=== PATIENT | male | born 1940 | race Caucasian/White ===

== ENCOUNTER 2017-09-12 11:32 | Inpatient (IN) ==
[2017-09-12] MEDS ORDERED: SODIUM CHLORIDE 0.9% 1,000 ML IV STA (12:11)
[2017-09-12] MEDS ORDERED: VANCOMYCIN INJ 750 MG in SODIUM CHLORIDE 0.9% 250 ML IV STA (12:13)
[2017-09-12 13:23] LABS: Basophils # 0.1 10*3/uL (0.0-0.2); Basophils % 0.2 % (0.0-0.8); Hematocrit 39.5 VOL% (42.0-52.0); Hemoglobin 12.9 GM/DL (14.0-18.0); Immature Granulocytes % 2.1 %; Immature Granulocytes Absolute 0.51 #; Lymphocytes # 1.2 10*3/uL (1.4-4.0); Lymphocytes % 5.2 % (21.2-54.2); Mean Corpuscular HGB Conc 32.7 GM/DL (32-36); Mean Corpuscular Hemoglobin 30 PG (27-34); Mean Corpuscular Volume 92.3 FL (87-102); Monocytes # 1.7 10*3/uL (0.11-0.8); Monocytes % 7.3 % (1.7-12.7); Neutrophils # 20.3 10*3/uL (1.4-7.4); Neutrophils % 85.2 % (38.7-73.9); Platelet Count 400 T/CUMM (130-400); Red Blood Count 4.28 MC/CUMM (3.8-5.5); Red Cell Distribution Width 14.4 % (9.3-17.3); White Blood Count 23.8 T/CUMM (4-12)
[2017-09-12 13:31] LABS: INR 1.2; PT Patient Result 12.8 SECS; Partial Thromboplastin Time 26.4 SECS (0-40)
[2017-09-12 13:33] LABS: Albumin 2.6 G/DL (3.4-5.0); Bilirubin,Total 0.4 MG/DL (0.2-1.0); Calcium 8.5 MG/DL (8.5-10.1); Magnesium 2.7 MG/DL (1.8-2.4); Osmolality,Calculated 314.4 MOS/KG (273-304); Potassium 3.7 MMOL/L (3.5-5.1); Total Protein 6.6 G/DL (6.4-8.3)
[2017-09-12 13:34] LABS: Lactic Acid 1.3 MMOL/L (0.4-2.0)
[2017-09-12 13:36] LABS: Apearance,Urine CLOUDY (Clear); Bilirubin,Urine Negative (Negative); Blood, Urine Small mg/dL (Negative); Glucose,Urine (UA) Negative (Negative); Ketones,Urine Negative (Negative); Mucus,Urine Occasional /LPF (Occasional); Nitrite,Urine Positive (Negative); Protein,Urine 100 MG/DL; RBC,Urine 3 /HPF (0-4); Urine Color Yellow (Yellow); Urine Specific Gravity 1.019 (1.001-1.035); Urine Urobilinogen < 2.0 EU/DL (0.2-1.0); WBC,Urine 263 /HPF (0-6)
[2017-09-12 13:50] LABS: Lymphocytes 4 % (20-55); Platelet Estimate Adequate; Segmented Neutrophils 86 % (50-85); Total Cells Counted 100
[2017-09-12] MEDS ORDERED: ACETAMINOPHEN 325 MG TABLET PO PRN (14:38)
[2017-09-12] MEDS ORDERED: PROMETHAZINE 25 MG/1 ML VIAL IM PRN (14:38)
[2017-09-12] MEDS ORDERED: traZODone 50 MG TABLET PO PRN (14:38)
[2017-09-12] MEDS ORDERED: ONDANSETRON 4 MG/2 ML VIAL IV PRN (14:38)
[2017-09-12] MEDS ORDERED: GENTAMICIN INJ 80 MG in PREMIX 1 EACH IV ONE (14:44)
[2017-09-12] MEDS ORDERED: GENTAMICIN 80 MG/2 ML VIAL ONE (15:09)
[2017-09-12] MEDS ORDERED: cefTRIAXone 1,000 MG in SYRINGE 1 EACH IV SCH (15:47)
[2017-09-12] MEDS: DEXTROSE 5% NACL 0.45% 1,000 ML IV SCH (16:19)
[2017-09-12] MEDS: cefTRIAXone 1,000 MG in SYRINGE 1 EACH IV SCH (16:20)
[2017-09-12] MEDS: ENOXAPARIN 40 MG/0.4 ML SYRINGE SUBCUT SCH (21:57)
[2017-09-13] MEDS: DEXTROSE 5% NACL 0.45% 1,000 ML IV SCH ×3 (01:00→20:17)
[2017-09-13 07:14] LABS: Basophils # 0.1 10*3/uL (0.0-0.2); Basophils % 0.3 % (0.0-0.8); Eosinophils # 0.1 10*3/uL (0.0-0.87); Eosinophils % 0.2 % (0.00-10.9); Hematocrit 38.6 VOL% (42.0-52.0); Hemoglobin 12.8 GM/DL (14.0-18.0); Immature Granulocytes % 1.6 %; Immature Granulocytes Absolute 0.33 #; Lymphocytes # 1.6 10*3/uL (1.4-4.0); Lymphocytes % 7.6 % (21.2-54.2); Mean Corpuscular HGB Conc 33.2 GM/DL (32-36); Mean Corpuscular Hemoglobin 30 PG (27-34); Mean Corpuscular Volume 90.6 FL (87-102); Mean Platelet Volume 9.9 FL (9.6-12.0); Monocytes # 1.3 10*3/uL (0.11-0.8); Neutrophils # 17.8 10*3/uL (1.4-7.4); Neutrophils % 84.3 % (38.7-73.9); Platelet Count 354 T/CUMM (130-400); Red Blood Count 4.26 MC/CUMM (3.8-5.5); Red Cell Distribution Width 14.3 % (9.3-17.3); White Blood Count 21.1 T/CUMM (4-12)
[2017-09-13 07:42] LABS: Lymphocytes 3 % (20-55); Platelet Estimate Adequate; Segmented Neutrophils 92 % (50-85); Total Cells Counted 100
[2017-09-13 07:43] LABS: Giant Platelets Few; Hypochromasia 1+
[2017-09-13 07:49] LABS: Calcium 8.4 MG/DL (8.5-10.1); Magnesium 2.4 MG/DL (1.8-2.4); Osmolality,Calculated 305.7 MOS/KG (273-304); Potassium 3.5 MMOL/L (3.5-5.1)
[2017-09-13] MEDS ORDERED: PROMETHAZINE 25 MG/1 ML VIAL IM PRN (08:01)
[2017-09-13] MEDS ORDERED: BACLOFEN 20 MG TABLET PO PRN (08:01)
[2017-09-13] MEDS ORDERED: MAGNESIUM HYDROXIDE SUSP 30 ML UDCUP PO PRN (08:01)
[2017-09-13] MEDS ORDERED: [UNRECOGNIZED DRUG - OTHER] PO SCH (09:00)
[2017-09-13] MEDS: ESCITALOPRAM 10 MG TABLET PO SCH (09:37)
[2017-09-13] MEDS: PANTOPRAZOLE 40 MG TABLET PO SCH (09:37)
[2017-09-13] MEDS ORDERED: SKIN HEALING OINT (AQUAPHOR) 50 GM TUBE TOP PRN (16:36)
[2017-09-13] MEDS: ENOXAPARIN 40 MG/0.4 ML SYRINGE SUBCUT SCH (21:10)
[2017-09-13] MEDS: cefTRIAXone 1,000 MG in SYRINGE 1 EACH IV SCH (21:10)
[2017-09-14] MEDS: DEXTROSE 5% NACL 0.45% 1,000 ML IV SCH ×4 (01:30→20:26)
[2017-09-14] MEDS: PANTOPRAZOLE 40 MG TABLET PO SCH (09:16)
[2017-09-14] MEDS: ESCITALOPRAM 10 MG TABLET PO SCH (09:16)
[2017-09-14] MEDS: SULFAMETHOX/TRIMETHOPRIM 800-160 MG TABLET PO SCH (20:56)
[2017-09-14] MEDS: ENOXAPARIN 40 MG/0.4 ML SYRINGE SUBCUT SCH (20:56)
[2017-09-15] MEDS: DEXTROSE 5% NACL 0.45% 1,000 ML IV SCH ×2 (01:51→13:00)
[2017-09-15] MEDS: PANTOPRAZOLE 40 MG TABLET PO SCH (10:14)
[2017-09-15] MEDS: ESCITALOPRAM 10 MG TABLET PO SCH (10:14)
[2017-09-15] MEDS: SULFAMETHOX/TRIMETHOPRIM 800-160 MG TABLET PO SCH (10:14)
[2017-09-15 11:39] VITALS: BP 125/52
== END 2017-09-15 13:40 | DRG 871 ==
LOC: EDUNIT# → EDBD → N.ED 11:32 → N.EDINP 13:57 → SUATTDRO 13:57 → N.2E 15:32
PROVIDERS: ADMIT Family Medicine; ATTEND Internal Medicine

== ENCOUNTER 2020-01-01 14:31 | Inpatient (IN) ==
[2020-01-01] MEDS ORDERED: SODIUM CHLORIDE 0.9% 1,000 ML IV STA (15:53)
[2020-01-01 16:21] LABS: Basophils % 0.2 % (0.0-0.8); Hematocrit 33.1 VOL% (42.0-52.0); Hemoglobin 10.6 GM/DL (14.0-18.0); Immature Granulocytes % 1.2 %; Immature Granulocytes Absolute 0.08 #; Lymphocytes # 0.9 10*3/uL (1.4-4.0); Lymphocytes % 13.4 % (21.2-54.2); Mean Corpuscular Volume 89.5 FL (87-102); Mean Platelet Volume 10.2 FL (9.6-12.0); Monocytes % 8.3 % (1.7-12.7); Neutrophils % 76.9 % (38.7-73.9); Platelet Count 228 T/CUMM (130-400); Red Cell Distribution Width 13.6 % (9.3-17.3); White Blood Count 6.5 T/CUMM (4-12)
[2020-01-01 16:48] LABS: Albumin 2.4 G/DL (3.4-5.0); Bilirubin,Total 0.8 MG/DL (0.2-1.0); Calcium 8.6 MG/DL (8.5-10.1); Osmolality,Calculated 281.4 MOS/KG (273-304); Total Protein 6.9 G/DL (6.4-8.3)
[2020-01-01 17:12] LABS: Apearance,Urine CLEAR (Clear); Bilirubin,Urine Negative (Negative); Blood, Urine Negative (Negative); Glucose,Urine (UA) Negative (Negative); Ketones,Urine Negative (Negative); Mucus,Urine Occasional /LPF (Occasional); Nitrite,Urine Negative (Negative); Protein,Urine 100 MG/DL; Urine Color Yellow (Yellow); Urine Specific Gravity 1.018 (1.001-1.035); Urine Urobilinogen < 2.0 EU/DL (0.2-1.0)
[2020-01-01] MEDS ORDERED: DEXTROSE 10% 250 ML BAG IV PRN (18:26)
[2020-01-01] MEDS ORDERED: GLUCAGON 1 MG VIAL IM PRN (18:26)
[2020-01-01] MEDS ORDERED: ONDANSETRON 4 MG/2 ML VIAL IV PRN (18:26)
[2020-01-01] MEDS: SODIUM CHLORIDE 0.9% 1,000 ML IV SCH (22:30)
[2020-01-01] MEDS: cefTRIAXone 1,000 MG in SYRINGE 1 EACH IV SCH (22:31)
[2020-01-01] MEDS: ENOXAPARIN 40 MG/0.4 ML SYRINGE SUBCUT SCH (22:40)
[2020-01-02] MEDS ORDERED: hydrALAZINE 20 MG/1 ML VIAL ONE (01:19)
[2020-01-02] MEDS ORDERED: hydrALAZINE 20 MG/1 ML VIAL IV PRN (01:21)
[2020-01-02 04:06] LABS: Hemoglobin 9.4 GM/DL (14.0-18.0); Immature Granulocytes % 1.2 %; Immature Granulocytes Absolute 0.09 #; Lymphocytes # 0.5 10*3/uL (1.4-4.0); Lymphocytes % 6.5 % (21.2-54.2); Mean Corpuscular HGB Conc 32.4 GM/DL (32-36); Mean Corpuscular Volume 88.4 FL (87-102); Mean Platelet Volume 10.3 FL (9.6-12.0); Monocytes % 7.5 % (1.7-12.7); Neutrophils % 84.8 % (38.7-73.9); Platelet Count 233 T/CUMM (130-400); Red Blood Count 3.28 MC/CUMM (3.8-5.5); Red Cell Distribution Width 13.4 % (9.3-17.3); White Blood Count 7.7 T/CUMM (4-12)
[2020-01-02 04:17] LABS: Alanine Aminotransferase 38 U/L (16-61); Albumin 2.2 G/DL (3.4-5.0); Alkaline Phosphatase 97 U/L (45-117); Aspartate Amino Transferase 73 U/L (0-37); Bilirubin,Total < 0.39 MG/DL (0.2-1.0); Blood Urea Nitrogen 16 MG/DL (7-18); Calcium 7.8 MG/DL (8.5-10.1); Estimated Glom Filtration Rate 77 ML/MIN; Glucose 76 MG/DL (74-106); Osmolality,Calculated 276.5 MOS/KG (273-304); Total Protein 6.3 G/DL (6.4-8.3)
[2020-01-02] MEDS: SODIUM CHLORIDE 0.9% 1,000 ML IV SCH (08:49)
[2020-01-02] MEDS ORDERED: MAGNESIUM SULF RIDER 2 GM in PREMIX 1 EACH IV PRN (08:59)
[2020-01-02] MEDS ORDERED: MAGNESIUM SULF RIDER 4 GM in PREMIX 1 EACH IV PRN (08:59)
[2020-01-02] MEDS: SODIUM CHLOR 0.9% KCL 20 MEQ 20 MEQ/1,000 ML BAG IV SCH (09:29)
[2020-01-02] MEDS: PANTOPRAZOLE 40 MG TABLET PO SCH (12:22)
[2020-01-02] MEDS: ACETAMINOPHEN 325 MG TABLET PO PRN (12:30)
[2020-01-02] MEDS: METOPROLOL TARTRATE 25 MG TABLET PO SCH ×2 (14:16→21:00)
[2020-01-02] MEDS: cefTRIAXone 1,000 MG in SYRINGE 1 EACH IV SCH (20:00)
[2020-01-02] MEDS: traZODone 50 MG TABLET PO SCH (21:00)
[2020-01-02] MEDS: ENOXAPARIN 40 MG/0.4 ML SYRINGE SUBCUT SCH (21:00)
[2020-01-02] MEDS: TAMSULOSIN 0.4 MG CAPSULE PO SCH (21:00)
[2020-01-03] MEDS: SODIUM CHLOR 0.9% KCL 20 MEQ 20 MEQ/1,000 ML BAG IV SCH (00:04)
[2020-01-03 04:34] LABS: Basophils % 0.1 % (0.0-0.8); Eosinophils % 0.1 % (0.00-10.9); Hematocrit 29.2 VOL% (42.0-52.0); Hemoglobin 9.4 GM/DL (14.0-18.0); Lymphocytes # 0.6 10*3/uL (1.4-4.0); Lymphocytes % 5.8 % (21.2-54.2); Mean Corpuscular HGB Conc 32.2 GM/DL (32-36); Mean Platelet Volume 10.5 FL (9.6-12.0); Monocytes % 4.1 % (1.7-12.7); Neutrophils % 88.9 % (38.7-73.9); Platelet Count 238 T/CUMM (130-400); Red Blood Count 3.32 MC/CUMM (3.8-5.5); Red Cell Distribution Width 13.5 % (9.3-17.3); White Blood Count 9.6 T/CUMM (4-12)
[2020-01-03 04:56] LABS: Osmolality,Calculated 272.7 MOS/KG (273-304)
[2020-01-03] MEDS: FINASTERIDE 5 MG TABLET PO SCH (08:11)
[2020-01-03] MEDS: METOPROLOL TARTRATE 25 MG TABLET PO SCH ×2 (08:11→21:00)
[2020-01-03] MEDS: PANTOPRAZOLE 40 MG TABLET PO SCH (08:11)
[2020-01-03] MEDS: ESCITALOPRAM 10 MG TABLET PO SCH (08:11)
[2020-01-03] MEDS: DEXT 5% NACL 0.45% KCL 10 MEQ 10 MEQ/1,000 ML BAG IV SCH (10:50)
[2020-01-03] MEDS: POTASSIUM CHLORIDE 20 MEQ TABLET PO PRN ×3 (11:07→15:36)
[2020-01-03] MEDS: ACETAMINOPHEN 325 MG TABLET PO PRN (15:36)
[2020-01-03] MEDS: cefTRIAXone 1,000 MG in SYRINGE 1 EACH IV SCH (21:00)
[2020-01-03] MEDS: TAMSULOSIN 0.4 MG CAPSULE PO SCH (21:00)
[2020-01-03] MEDS: traZODone 50 MG TABLET PO SCH (21:00)
[2020-01-03] MEDS: ENOXAPARIN 40 MG/0.4 ML SYRINGE SUBCUT SCH (21:00)
[2020-01-04 06:11] LABS: Basophils % 0.1 % (0.0-0.8); Eosinophils % 0.2 % (0.00-10.9); Hemoglobin 9.4 GM/DL (14.0-18.0); Immature Granulocytes % 1.6 %; Immature Granulocytes Absolute 0.13 #; Lymphocytes # 0.6 10*3/uL (1.4-4.0); Lymphocytes % 6.7 % (21.2-54.2); Mean Corpuscular HGB Conc 33.6 GM/DL (32-36); Mean Corpuscular Volume 85.4 FL (87-102); Mean Platelet Volume 10.6 FL (9.6-12.0); Monocytes % 4.4 % (1.7-12.7); Platelet Count 271 T/CUMM (130-400); Red Blood Count 3.28 MC/CUMM (3.8-5.5); Red Cell Distribution Width 13.4 % (9.3-17.3); White Blood Count 8.2 T/CUMM (4-12)
[2020-01-04 06:24] LABS: Calcium 7.9 MG/DL (8.5-10.1); Osmolality,Calculated 266.2 MOS/KG (273-304)
[2020-01-04] MEDS: FINASTERIDE 5 MG TABLET PO SCH (09:00)
[2020-01-04] MEDS: PANTOPRAZOLE 40 MG TABLET PO SCH (09:00)
[2020-01-04] MEDS: ESCITALOPRAM 10 MG TABLET PO SCH (09:00)
[2020-01-04] MEDS: METOPROLOL TARTRATE 25 MG TABLET PO SCH ×2 (09:00→21:00)
[2020-01-04] MEDS: DEXT 5% NACL 0.45% KCL 10 MEQ 10 MEQ/1,000 ML BAG IV SCH (09:56)
[2020-01-04] MEDS ORDERED: lisinopriL 2.5 MG TABLET PO SCH (14:00)
[2020-01-04] MEDS: ENOXAPARIN 40 MG/0.4 ML SYRINGE SUBCUT SCH (21:00)
[2020-01-04] MEDS: traZODone 50 MG TABLET PO SCH (21:00)
[2020-01-04] MEDS: TAMSULOSIN 0.4 MG CAPSULE PO SCH (21:00)
[2020-01-04] MEDS: cefTRIAXone 1,000 MG in SYRINGE 1 EACH IV SCH (21:00)
[2020-01-05] MEDS: DEXT 5% NACL 0.45% KCL 10 MEQ 10 MEQ/1,000 ML BAG IV SCH ×2 (04:00→23:45)
[2020-01-05 06:59] LABS: Calcium 8.1 MG/DL (8.5-10.1); Osmolality,Calculated 262.5 MOS/KG (273-304)
[2020-01-05] MEDS: ESCITALOPRAM 10 MG TABLET PO SCH (09:55)
[2020-01-05] MEDS: lisinopriL 2.5 MG TABLET PO SCH (09:55)
[2020-01-05] MEDS: METOPROLOL TARTRATE 25 MG TABLET PO SCH ×2 (09:55→21:58)
[2020-01-05] MEDS: PANTOPRAZOLE 40 MG TABLET PO SCH (09:55)
[2020-01-05] MEDS: FINASTERIDE 5 MG TABLET PO SCH (09:55)
[2020-01-05] MEDS: POTASSIUM CHLORIDE 20 MEQ TABLET PO PRN ×3 (17:27→22:25)
[2020-01-05] MEDS: ENOXAPARIN 40 MG/0.4 ML SYRINGE SUBCUT SCH (21:57)
[2020-01-05] MEDS: TAMSULOSIN 0.4 MG CAPSULE PO SCH (21:59)
[2020-01-05] MEDS: traZODone 50 MG TABLET PO SCH (22:00)
[2020-01-05] MEDS: cefTRIAXone 1,000 MG in SYRINGE 1 EACH IV SCH (22:02)
[2020-01-06] MEDS: POTASSIUM CHLORIDE 20 MEQ TABLET PO PRN (04:18)
[2020-01-06 06:43] LABS: Basophils % 0.2 % (0.0-0.8); Eosinophils # 0.1 10*3/uL (0.0-0.87); Eosinophils % 0.4 % (0.00-10.9); Hematocrit 28.6 VOL% (42.0-52.0); Hemoglobin 9.4 GM/DL (14.0-18.0); Immature Granulocytes % 0.8 %; Immature Granulocytes Absolute 0.11 #; Lymphocytes % 7.4 % (21.2-54.2); Mean Corpuscular HGB Conc 32.9 GM/DL (32-36); Mean Corpuscular Volume 86.7 FL (87-102); Mean Platelet Volume 10.2 FL (9.6-12.0); Monocytes % 5.8 % (1.7-12.7); Neutrophils % 85.4 % (38.7-73.9); Platelet Count 352 T/CUMM (130-400); Red Cell Distribution Width 13.2 % (9.3-17.3); White Blood Count 13.3 T/CUMM (4-12)
[2020-01-06 07:32] LABS: Calcium 7.9 MG/DL (8.5-10.1); Ferritin 407.4 ng/ml (26-388); Osmolality,Calculated 268.2 MOS/KG (273-304)
[2020-01-06] MEDS: METOPROLOL TARTRATE 25 MG TABLET PO SCH ×2 (09:06→21:25)
[2020-01-06] MEDS: PANTOPRAZOLE 40 MG TABLET PO SCH (09:06)
[2020-01-06] MEDS: ESCITALOPRAM 10 MG TABLET PO SCH (09:06)
[2020-01-06] MEDS: lisinopriL 2.5 MG TABLET PO SCH (09:06)
[2020-01-06] MEDS: FINASTERIDE 5 MG TABLET PO SCH (09:06)
[2020-01-06] MEDS: DEXT 5% NACL 0.45% KCL 10 MEQ 10 MEQ/1,000 ML BAG IV SCH (20:13)
[2020-01-06] MEDS: cefTRIAXone 1,000 MG in SYRINGE 1 EACH IV SCH (20:55)
[2020-01-06] MEDS: traZODone 50 MG TABLET PO SCH (21:24)
[2020-01-06] MEDS: ENOXAPARIN 40 MG/0.4 ML SYRINGE SUBCUT SCH (21:25)
[2020-01-06] MEDS: TAMSULOSIN 0.4 MG CAPSULE PO SCH (21:25)
[2020-01-07] MEDS: PANTOPRAZOLE 40 MG TABLET PO SCH (09:48)
[2020-01-07] MEDS: METOPROLOL TARTRATE 25 MG TABLET PO SCH ×2 (09:48→21:20)
[2020-01-07] MEDS: lisinopriL 2.5 MG TABLET PO SCH (09:48)
[2020-01-07] MEDS: FINASTERIDE 5 MG TABLET PO SCH (09:48)
[2020-01-07] MEDS: ESCITALOPRAM 10 MG TABLET PO SCH (09:48)
[2020-01-07] MEDS: DEXT 5% NACL 0.45% KCL 10 MEQ 10 MEQ/1,000 ML BAG IV SCH (17:00)
[2020-01-07] MEDS: ENOXAPARIN 40 MG/0.4 ML SYRINGE SUBCUT SCH (21:20)
[2020-01-07] MEDS: traZODone 50 MG TABLET PO SCH (21:20)
[2020-01-07] MEDS: TAMSULOSIN 0.4 MG CAPSULE PO SCH (21:20)
[2020-01-07] MEDS: cefTRIAXone 1,000 MG in SYRINGE 1 EACH IV SCH (21:20)
[2020-01-08] MEDS: FINASTERIDE 5 MG TABLET PO SCH (08:57)
[2020-01-08] MEDS: ESCITALOPRAM 10 MG TABLET PO SCH (08:57)
[2020-01-08] MEDS: METOPROLOL TARTRATE 25 MG TABLET PO SCH ×2 (08:57→22:36)
[2020-01-08] MEDS: lisinopriL 2.5 MG TABLET PO SCH (08:57)
[2020-01-08] MEDS: DEXT 5% NACL 0.45% KCL 10 MEQ 10 MEQ/1,000 ML BAG IV SCH (14:45)
[2020-01-08] MEDS: ACETAMINOPHEN 325 MG TABLET PO PRN (16:47)
[2020-01-08] MEDS: HEPARIN 5,000 UNIT/1 ML VIAL SUBCUT SCH (22:34)
[2020-01-08] MEDS: traZODone 50 MG TABLET PO SCH (22:35)
[2020-01-08] MEDS: TAMSULOSIN 0.4 MG CAPSULE PO SCH (22:36)
[2020-01-09] MEDS ORDERED: MORPHINE 4 MG/1 ML VIAL ONE (03:51)
[2020-01-09] MEDS ORDERED: MORPHINE 4 MG/1 ML VIAL IV ONE (03:51)
[2020-01-09] MEDS ORDERED: MORPHINE 4 MG/1 ML VIAL IV PRN (04:15)
[2020-01-09 04:54] LABS: Basophils % 0.2 % (0.0-0.8); Hematocrit 30.7 VOL% (42.0-52.0); Hemoglobin 9.8 GM/DL (14.0-18.0); Immature Granulocytes % 1.1 %; Immature Granulocytes Absolute 0.25 #; Lymphocytes # 0.7 10*3/uL (1.4-4.0); Lymphocytes % 3.1 % (21.2-54.2); Mean Corpuscular HGB Conc 31.9 GM/DL (32-36); Mean Platelet Volume 10.3 FL (9.6-12.0); Monocytes % 5.6 % (1.7-12.7); Platelet Count 464 T/CUMM (130-400); Red Blood Count 3.49 MC/CUMM (3.8-5.5); Red Cell Distribution Width 13.5 % (9.3-17.3); White Blood Count 23.7 T/CUMM (4-12)
[2020-01-09 05:15] LABS: Calcium 9.2 MG/DL (8.5-10.1); Osmolality,Calculated 282.7 MOS/KG (273-304)
[2020-01-09] MEDS: HEPARIN 5,000 UNIT/1 ML VIAL SUBCUT SCH ×2 (05:45→12:23)
[2020-01-09 07:52] LABS: Lymphocytes 7 % (20-55); Platelet Estimate Increased; Segmented Neutrophils 85 % (50-85); Total Cells Counted 100
[2020-01-09 07:53] LABS: Hypochromasia 1+; Microcytosis Slight; Ovalocytes Slight
[2020-01-09 08:35] VITALS: BP 150/84
[2020-01-09] MEDS: ESCITALOPRAM 10 MG TABLET PO SCH (12:21)
[2020-01-09] MEDS: lisinopriL 2.5 MG TABLET PO SCH (12:22)
[2020-01-09] MEDS: METOPROLOL TARTRATE 25 MG TABLET PO SCH (12:22)
[2020-01-09] MEDS: FINASTERIDE 5 MG TABLET PO SCH (12:22)
[2020-01-09] MEDS: DEXT 5% NACL 0.45% KCL 10 MEQ 10 MEQ/1,000 ML BAG IV SCH (12:24)
== END 2020-01-09 19:12 | disposition expired | DRG 177 ==
LOC: EDBD → EDUNIT# → EDSEX → N.EDINP 14:31 → N.ED 14:31 → N.2E 01-02 11:33 → SUATTDRO 01-03 13:53
PROVIDERS: ADMIT Internal Medicine; ATTEND Hospitalist